=== PATIENT | female | born 1985 | race Two or more races ===

== ENCOUNTER 2020-07-27 11:22 | Inpatient (IN) | payer MEDICAID, OTHER ==
[~2020-07-27] VITALS: Ht 170.2 cm; Wt 137.1 kg
[2020-07-27] MEDS ORDERED: AZITHROMYCIN 500MG/ 250ML 250 ML IV ONE (17:30)
[2020-07-27] MEDS ORDERED: SODIUM CHLORIDE 0.9% 1,000 ML IV ONE (17:30)
[2020-07-27] MEDS ORDERED: DexAMETHasone SOD PHOS 10MG/1ML VIAL INJ IV ONE (17:30)
[2020-07-27 18:50] LABS: Basophils # (auto) 0 10 ^3/uL (0-0.2); Basophils % (auto) 0.4 % (0.0-2.0); Eosinophils # (auto) 0.1 10 ^3/uL (0-0.8); Eosinophils % (auto) 1.3 % (0.0-7.0); Hematocrit 38.1 % (36.0-46.0); Hemoglobin 12.9 g/dL (12.2-16.2); Lymphocytes # (auto) 1.2 10 ^3/uL (0.4-5.4); Lymphocytes % (auto) 27.2 % (10.0-50.0); Mean Corpuscular Hemoglobin 27.6 pg (28.0-32.0); Mean Corpuscular Volume 81.1 fL (80.0-100.0); Monocytes # (auto) 0.6 10 ^3/uL (0-1.3); Monocytes % (auto) 13.5 % (0.0-12.0); Neutrophils # (auto) 2.5 10 ^3/uL (1.6-8.6); Neutrophils % (auto) 57.6 % (37.0-80.0); Nucleated Red Blood Cells % 0.1 %; Platelet Count (auto) 428 10^3/uL (140-450); Red Blood Cells 4.69 10^6/uL (4.0-5.20); Red Cell Distribution Width 15.1 % (11.8-14.3); White Blood Cell 4.4 10^3/uL (4.4-10.8)
[2020-07-27] MEDS ORDERED: ACETAMINOPHEN 325 MG TAB PO ONE (19:00)
[2020-07-27] MEDS ORDERED: ACETAMINOPHEN 500 MG TAB PO PRN (19:00)
[2020-07-27] MEDS ORDERED: ONDANSETRON HCL 4 MG/2 ML VIAL IV PRN (19:00)
[2020-07-27] MEDS ORDERED: REMDESIVIR PER PHARMACY 0 ML IV SCH (19:00)
[2020-07-27] MEDS ORDERED: NITROGLYCERIN 0.4 MG SL TAB SL PRN (19:00)
[2020-07-27] MEDS ORDERED: MORPHINE SULF INJ 2 MG/ML SYRINGE 1ML IV PRN ×2 (19:00)
[2020-07-27 19:06] LABS: BUN/Creatinine Ratio 14.3; Calcium 9.3 mg/dL (8.5-10.1); Potassium 3.4 mmol/L (3.5-5.1)
[2020-07-27] MEDS: ASCORBIC ACID 1,000 MG TAB PO SCH (19:08)
[2020-07-27] MEDS: CHOLECALCIFEROL (VITD3) 2,000 UNIT CAP PO SCH (19:08)
[2020-07-27] MEDS: cefTRIAXone 1GM/50ML D5W 50 ML IV SCH (19:10)
[2020-07-27] MEDS: ZINC SULFATE 220mg CAP or TAB PO SCH (19:10)
[2020-07-27 19:15] LABS: CRP High Sensitivity 7.67 mg/dL (< 0.3)
[2020-07-27] MEDS: ENOXAPARIN SOD 40 MG/0.4 ML SYRINGE SC SCH (22:00)
[2020-07-28] MEDS: BUDESONIDE (INHALATION) 180 MCG IH IN SCH ×3 (04:46→19:35)
[2020-07-28] MEDS: cefTRIAXone 1GM/50ML D5W 50 ML IV SCH (09:33)
[2020-07-28] MEDS: DexAMETHasone SOD PHOS 10MG/1ML VIAL INJ IV SCH (10:24)
[2020-07-28] MEDS: ENOXAPARIN SOD 40 MG/0.4 ML SYRINGE SC SCH ×2 (10:24→21:34)
[2020-07-28] MEDS: CHOLECALCIFEROL (VITD3) 2,000 UNIT CAP PO SCH (10:24)
[2020-07-28] MEDS: ASCORBIC ACID 1,000 MG TAB PO SCH (10:25)
[2020-07-28] MEDS: ZINC SULFATE 220mg CAP or TAB PO SCH (10:25)
[2020-07-28] MEDS: FAMOTIDINE 20 MG TAB PO SCH (10:25)
[2020-07-28] MEDS: AZITHROMYCIN 500MG/ 250ML 250 ML IV SCH (10:26)
[2020-07-28] MEDS: ALBUTEROL SULF HFA 90MCG INH 200DOSE IN PRN ×2 (10:53→19:35)
[2020-07-28] MEDS ORDERED: POTASSIUM CHL 20 Meq TABLET PO ONE (13:15)
[2020-07-28] MEDS ORDERED: FUROSEMIDE 40 MG/4 ML VIAL IV ONE (13:15)
[2020-07-28 22:33] LABS: Potassium 3.9 mmol/L (3.5-5.1)
[2020-07-28 22:38] LABS: Albumin 3.2 g/dL (3.4-5.0); BUN/Creatinine Ratio 16.8; Bilirubin, Total 0.3 mg/dL (0.2-1.0); Calcium 9.5 mg/dL (8.5-10.1); Total Protein 8.5 g/dL (6.4-8.2)
[2020-07-28 22:42] LABS: Bilirubin, Direct 0.1 mg/dL (0-0.2)
[2020-07-28 23:22] VITALS: BP 132/81
[2020-07-29] VITALS: BP 132/82
[2020-07-29] MEDS ORDERED: ASCO500T11 PO (02:07)
[2020-07-29] MEDS ORDERED: ZINC100T5 PO (02:07)
[2020-07-29] MEDS ORDERED: MELA3TAB27 PO (02:07)
[2020-07-29] MEDS ORDERED: CHOL400T19 PO (02:07)
[2020-07-29] MEDS ORDERED: CYA100I PO (02:07)
[2020-07-29] MEDS ORDERED: MULTCAP45 PO (02:07)
[2020-07-29 06:35] LABS: Basophils # (auto) 0 10 ^3/uL (0-0.2); Eosinophils # (auto) 0 10 ^3/uL (0-0.8); Hemoglobin 12.1 g/dL (12.2-16.2); Mean Corpuscular Hemoglobin 27.4 pg (28.0-32.0); Monocytes # (auto) 0.7 10 ^3/uL (0-1.3); Neutrophils % (auto) 74.4 % (37.0-80.0); Red Blood Cells 4.41 10^6/uL (4.0-5.20); White Blood Cell 8.5 10^3/uL (4.4-10.8)
[2020-07-29 06:39] LABS: Basophils % (auto) 0.2 % (0.0-2.0); Hematocrit 35.6 % (36.0-46.0); Lymphocytes # (auto) 1.5 10 ^3/uL (0.4-5.4); Lymphocytes % (auto) 17.5 % (10.0-50.0); Mean Corpuscular Hgb Conc. 33.9 g/dL (32.0-36.0); Mean Corpuscular Volume 80.7 fL (80.0-100.0); Monocytes % (auto) 7.9 % (0.0-12.0); Neutrophils # (auto) 6.4 10 ^3/uL (1.6-8.6); Platelet Count (auto) 526 10^3/uL (140-450)
[2020-07-29 08:00] VITALS: BP 139/73
[2020-07-29 08:56] LABS: Potassium 4.2 mmol/L (3.5-5.1)
[2020-07-29] MEDS: DexAMETHasone SOD PHOS 10MG/1ML VIAL INJ IV SCH (09:07)
[2020-07-29] MEDS: AZITHROMYCIN 500MG/ 250ML 250 ML IV SCH (09:08)
[2020-07-29] MEDS: cefTRIAXone 1GM/50ML D5W 50 ML IV SCH (09:08)
[2020-07-29] MEDS: ENOXAPARIN SOD 40 MG/0.4 ML SYRINGE SC SCH ×2 (09:08→21:32)
[2020-07-29] MEDS: FUROSEMIDE 20 MG/2 ML VIAL IV SCH (09:08)
[2020-07-29] MEDS: FAMOTIDINE 20 MG TAB PO SCH (09:09)
[2020-07-29] MEDS: ZINC SULFATE 220mg CAP or TAB PO SCH (09:09)
[2020-07-29] MEDS: CHOLECALCIFEROL (VITD3) 2,000 UNIT CAP PO SCH (09:10)
[2020-07-29] MEDS: ASCORBIC ACID 1,000 MG TAB PO SCH (09:10)
[2020-07-29] MEDS: POTASSIUM CHL 10 Meq TABLET PO SCH (09:10)
[2020-07-29 09:31] LABS: Albumin 2.9 g/dL (3.4-5.0); BUN/Creatinine Ratio 26.8; Bilirubin, Total 0.2 mg/dL (0.2-1.0); Calcium 9.4 mg/dL (8.5-10.1); Magnesium 2.2 mg/dL (1.6-2.6); Total Protein 7.9 g/dL (6.4-8.2)
[2020-07-29] MEDS: BUDESONIDE (INHALATION) 180 MCG IH IN SCH ×2 (10:00→20:55)
[2020-07-29] MEDS ORDERED: ERGOCALCIFEROL 50,000 UNIT(1.25MG) CAP PO SCH (13:45)
[2020-07-29] MEDS ORDERED: REMDESIVIR 200 MG in NS 210ml LOADING DOSE ADULT IV ONE (15:00)
[2020-07-29 16:00] VITALS: BP 143/80
[2020-07-29] MEDS: HYDROcodone-ACET 5/325MG TAB PO PRN (16:48)
[2020-07-29] MEDS ORDERED: diphenhdrAMINE HCL 50 MG/1 ML VL IV PRN (19:00)
[2020-07-29] MEDS: ALBUTEROL SULF HFA 90MCG INH 200DOSE IN PRN (20:56)
[2020-07-30] VITALS: BP 132/77
[2020-07-30 08:00] VITALS: BP 126/78
[2020-07-30] MEDS: cefTRIAXone 1GM/50ML D5W 50 ML IV SCH (08:17)
[2020-07-30 08:34] LABS: Albumin 2.8 g/dL (3.4-5.0); BUN/Creatinine Ratio 32.9; Bilirubin, Total 0.3 mg/dL (0.2-1.0); Calcium 9.4 mg/dL (8.5-10.1); Potassium 4.3 mmol/L (3.5-5.1); Total Protein 7.6 g/dL (6.4-8.2)
[2020-07-30] MEDS: BUDESONIDE (INHALATION) 180 MCG IH IN SCH ×2 (09:43→22:00)
[2020-07-30] MEDS: ALBUTEROL SULF HFA 90MCG INH 200DOSE IN PRN (09:44)
[2020-07-30] MEDS: ZINC SULFATE 220mg CAP or TAB PO SCH (10:30)
[2020-07-30] MEDS: POTASSIUM CHL 10 Meq TABLET PO SCH (10:30)
[2020-07-30] MEDS: DexAMETHasone SOD PHOS 10MG/1ML VIAL INJ IV SCH (10:36)
[2020-07-30] MEDS: AZITHROMYCIN 500MG/ 250ML 250 ML IV SCH (10:36)
[2020-07-30] MEDS: FAMOTIDINE 20 MG TAB PO SCH (10:37)
[2020-07-30] MEDS: ASCORBIC ACID 1,000 MG TAB PO SCH (10:37)
[2020-07-30] MEDS: FUROSEMIDE 20 MG/2 ML VIAL IV SCH (10:37)
[2020-07-30] MEDS: CHOLECALCIFEROL (VITD3) 2,000 UNIT CAP PO SCH (10:37)
[2020-07-30] MEDS: ENOXAPARIN SOD 40 MG/0.4 ML SYRINGE SC SCH ×2 (10:38→21:31)
[2020-07-30] MEDS: REMDESIVIR 100 MG in SODIUM CHL 0.9% 250 ML IV SCH (15:30)
[2020-07-30 16:00] VITALS: BP 120/74
[2020-07-30] MEDS ORDERED: guaiFENesin-DM 100/10mg/5ml SYR PO PRN (16:45)
[2020-07-30] MEDS: HYDROcodone-ACET 5/325MG TAB PO PRN (21:32)
[2020-07-31] VITALS: BP 124/81
[2020-07-31 08:00] VITALS: BP 114/87
[2020-07-31] MEDS: cefTRIAXone 1GM/50ML D5W 50 ML IV SCH (08:48)
[2020-07-31] MEDS: BUDESONIDE (INHALATION) 180 MCG IH IN SCH ×2 (10:00→17:24)
[2020-07-31 10:03] LABS: Albumin 3.1 g/dL (3.4-5.0); Calcium 9.2 mg/dL (8.5-10.1); Potassium 4.2 mmol/L (3.5-5.1)
[2020-07-31 10:06] LABS: BUN/Creatinine Ratio 24.4; Bilirubin, Total 0.4 mg/dL (0.2-1.0)
[2020-07-31] MEDS: FUROSEMIDE 20 MG/2 ML VIAL IV SCH (10:27)
[2020-07-31] MEDS: DexAMETHasone SOD PHOS 10MG/1ML VIAL INJ IV SCH (10:27)
[2020-07-31] MEDS: AZITHROMYCIN 500MG/ 250ML 250 ML IV SCH (10:27)
[2020-07-31] MEDS: ZINC SULFATE 220mg CAP or TAB PO SCH (10:27)
[2020-07-31] MEDS: FAMOTIDINE 20 MG TAB PO SCH (10:28)
[2020-07-31] MEDS: CHOLECALCIFEROL (VITD3) 2,000 UNIT CAP PO SCH (10:28)
[2020-07-31] MEDS: POTASSIUM CHL 10 Meq TABLET PO SCH (10:28)
[2020-07-31] MEDS: ASCORBIC ACID 1,000 MG TAB PO SCH (10:28)
[2020-07-31] MEDS: ENOXAPARIN SOD 40 MG/0.4 ML SYRINGE SC SCH (10:28)
[2020-07-31] MEDS ORDERED: ASCO10003 PO (12:21)
[2020-07-31] MEDS ORDERED: ALBUAER3 IN (12:21)
[2020-07-31] MEDS ORDERED: BUDE2SUS3 IN (12:21)
[2020-07-31] MEDS ORDERED: ZINC220T6 PO (12:21)
[2020-07-31] MEDS ORDERED: DOXY-286 PO (12:21)
[2020-07-31] MEDS ORDERED: FAMO20TA10 PO (12:21)
[2020-07-31] MEDS ORDERED: CHOL1CAP47 PO (12:21)
[2020-07-31] MEDS ORDERED: ASPI-378 PO (12:21)
[2020-07-31] MEDS ORDERED: METH4PAK PO (12:21)
[2020-07-31] MEDS: REMDESIVIR 100 MG in SODIUM CHL 0.9% 250 ML IV SCH (15:48)
[2020-07-31 15:55] VITALS: BP 139/82
[2020-07-31 16:00] VITALS: BP 133/89
[2020-07-31 16:23] VITALS: BP 114/87
[2020-07-31] MEDS: ALBUTEROL SULF HFA 90MCG INH 200DOSE IN PRN (17:25)
== END 2020-07-31 18:36 | disposition home or self-care (01) | DRG 720 ==
LOC: ER 11:22 → OVERFLOW 18:57 → TELE-WESTW 07-28 22:42
PROVIDERS: ADMIT Nurse Practitioner Acute Care; ATTEND Internal Medicine
PROC: XW033E5 Introduction of Remdesivir Anti-infective into Peripheral Vein, Percutaneous Approach, New Technology Group 5 (ICD-10-PCS; principal; 2020-07-27)
DX: A41.89 Other specified sepsis (principal); U07.1 COVID-19; J96.01 Acute respiratory failure with hypoxia; D68.59 Other primary thrombophilia; E55.9 Vitamin D deficiency, unspecified; E66.01 Morbid (severe) obesity due to excess calories; E78.5 Hyperlipidemia, unspecified; J12.89 Other viral pneumonia; Z68.42 Body mass index [BMI] 45.0-49.9, adult
CPT/HCPCS: 36415; 71045; 80048; 80053; 80061; 80076; 82306; 82728; 82962; 83615; 83735; 84443; 84702; 85025; 85379; 86141; 86850; 86900; 86901; 87040; 87426; 87804; 94640; G0378; J0696; J1100